=== PATIENT | male | born 1980 | race Caucasian/White ===

== ENCOUNTER 2023-08-26 16:36 | Emergency (ER) | payer OTHER ==
[~2023-08-26] VITALS: Ht 180.3 cm; Wt 90.0 kg
[2023-08-26] MEDS: ACETAMINOPHEN 500 MG TABLET PO ONE (18:24)
[2023-08-26] MEDS: IBUPROFEN 600 MG TABLET PO ONE (18:25)
[2023-08-26] MEDS: TraMADol HCL 50 MG TABLET PO ONE (19:22)
[2023-08-26 19:50] VITALS: BP 129/71; PULSE 77; RESP 17; TEMP 97.3
== END 2023-08-26 20:21 ==
LOC: EMS 16:41
DX: S62.291A Other fracture of first metacarpal bone, right hand, initial encounter for closed fracture (principal); E11.9 Type 2 diabetes mellitus without complications; E78.00 Pure hypercholesterolemia, unspecified; I10 Essential (primary) hypertension; K21.9 Gastro-esophageal reflux disease without esophagitis; X58.XXXA Exposure to other specified factors, initial encounter; Y93.89 Activity, other specified; Y92.89 Other specified places as the place of occurrence of the external cause; Y99.8 Other external cause status
CPT/HCPCS: 99284; 73130-TC; Z7502; Z7610